=== PATIENT | male | born 1995 | race Two or more races ===

== ENCOUNTER 2021-07-26 01:14 | Emergency (ER) | payer MEDICAID, SELFPAY ==
[2021-07-26 01:35] VITALS: BP 201/135; BP 201/136; PULSE 103; PULSE 108; RESP 16; RESP 18; TEMP 36.9; O2SAT 97; O2SAT 99; BMI 38.3
--- NOTE | 2021-07-26 03:54 | PC.NURSE ---
Pt arrived to bed 18 from waiting room for evaluation of nosebleed x 1 hour prior to arrival. He states the nosebleed began while he was sitting down playing video games. On arrival to bed 18 his BP is noted to be greater than 200 systolically and greater than 100 diastolically. Stack MD aware. Pt has no complaints other than the nosebleed - no chest pain, no SOB. Speech is clear and appropriate, he has remained calm and cooperative, skin pink/warm/dry. Family at the bedside. Stack MD to bedside and applied a nasal trumpet in the left nare. pt tolerated procedure well. pt is sitting upright in bed, resting, awaiting DC instructions.
[2021-07-26 04:13] VITALS: BP 177/114; PULSE 94; RESP 20; O2SAT 97
--- NOTE | 2021-07-26 04:16 | ECG_ITS ---
Test Reason : WEAKNESS Blood Pressure : / mmHG Vent. Rate : 094 BPM Atrial Rate : 094 BPM P-R Int : 142 ms QRS Dur : 092 ms QT Int : 380 ms P-R-T Axes : 009 -49 029 degrees QTc Int : 475 ms Normal sinus rhythm Left anterior fascicular block Lateral infarct , age undetermined Abnormal ECG No previous ECGs available Referred By: Antionette Stack Electronically Signed By:VIV RANDOLPH
--- NOTE | 2021-07-26 04:18 | ED_ITS ---
History of Present Illness General Chief Complaint: Epistaxis Stated Complaint: Nose bleed Time Seen by Provider: 07/26/21 04:16 History of Present Illness HPI Narrative: Patient is a 25-year-old male while playing video game had a sudden onset of nosebleed on the left side. The bleeding never stop. Patient presents to the emergency department. Was noted also to have an extremely elevated blood pressure. Patient denies any history of highly elevated blood pressure. Not on any medication. Has no medication. Did not use any recreational drugs. Somewhat anxious secondary to the bleeding. Patient from home. Denies any trauma. Did not pick his nose. No foreign object. Related Data Previous Rx's Medication Instructions Recorded cephalexin 500 mg capsule 500 mg PO TID 7 days #21 caps 07/26/21 Allergies Allergy/AdvReac Type Severity Reaction Status Date / Time No Known Allergies Allergy Verified 07/26/21 01:26 Review of Systems Review of Systems: Positive nosebleed PMFSH Past Medical History Attestation statement: The following information was validated with the patient. Social History Social History Advance Directives: No Advance Directives Information Provided: No Physical Exam Vital Signs: Vital Signs: Last Vital Signs Temp 98.4 F 07/26/21 01:35 Pulse 94 07/26/21 04:13 Resp 20 07/26/21 04:13 BP 177/114 H 07/26/21 04:13 Pulse Ox 97 07/26/21 04:13 O2 Del Method 07/26/21 04:13 BMI result Body Mass Index 38.3 Appearance: Alert. Oriented X3. No acute distress. Eyes: Pupils equal, round and reactive to light. ENT: Pharynx normal positive dry blood noted. There is blood coming out from the left nostril. There is lots of clots noted. Neck: Normal inspection. Neck supple. No lymph nodes noted. No crepitus CVS: Normal heart rate and rhythm. Pulses normal. Normal S1 and S2 Respiratory: No respiratory distress. Breath sounds normal. No Wheezing. No rales Abdomen: Soft and nontender. No rigidity. No distention. good BS x4 Skin: Skin warm and dry. Normal skin color. Normal skin turgor. Extremities: No lower extremity edema. Neurovascular intact to all extremities. No Lacerations. No Rash Neuro: Oriented X 3. No motor deficit. No sensory deficit. Moving all extermities. No slurred speech MDM - Epistaxis MDM Narrative Medical decision making narrative: The blood clots from bilateral nostril was removed. Afrin was used for vaso constriction. Examination of the left nostril did not show a definitive site of bleeding. A 7.5 cm nasal packing was placed in the left nostril. Puffed up to 7 cc. It was 1st soaked in saline. Then bacitracin ointment was us for lubrication. No complication. Patient was then monitored in the emergency department for the next hour to hour and a half there is no acute bleeding. However patient's blood pressure remained elevated at 1 70/110. We will get baseline labs an EKG and monitor. No distress. Will start patient on antibiotics. Considering patient is still under stress from the nose bleed will not place patient on hypertensive medication. Will have patient follow-up on an outpatient basis for repeat blood pressure check. He is currently in stable condition. Differential Diagnosis Differential diagnosis: Likely anterior epistaxis Medical Records Attestation: I reviewed the patient's medical records. Lab Data Attestation: I reviewed the patient's lab results. Result diagrams: 07/26/21 04:30 07/26/21 04:30 Labs: Lab Results 07/26/21 07/26/21 Range/Units 04:30 04:30 WBC 9.6 (4.8-10.8) X10*3/uL RBC 4.95 (4.60-5.80) X10*6/uL Hgb 14.4 (14.0-18.0) g/dl Hct 41.0 L (42.0-52.0) % MCV 82.8 (80.0-98.0) fL MCH 29.1 (27.0-33.0) pg MCHC 35.1 (31.0-36.0) g/dl RDW 13.5 (11.0-16.0) % Plt Count 297 (160-400) X10*3/uL MPV 10.5 (9.4-12.4) fL Immature Gran % (Auto) 0.3 (0.0-0.4) % Neut % (Auto) 65.8 (45-73) % Lymph % (Auto) 24.5 (20-40) % [place] % (Auto) 7.6 (2-11) % Eos % (Auto) 1.5 (0-4) % Baso % (Auto) 0.3 (0-2) % Lymph # (Auto) 2.4 (1.2-4.9) X10*3/uL [place] # (Auto) 0.7 (0.1-1.2) X10*3/uL Eos # (Auto) 0.1 (0.0-0.4) X10*3/uL Baso # (Auto) 0.0 (0.0-0.2) X10*3/uL Abs Immat Gran (auto) 0.03 (0.00-0.03) X10*3/uL Absolute Neuts (auto) 6.3 (2.0-8.3) x10*3/uL Absolute Nucleated RBC 0.000 (0.0-0.012) X10*3/uL Nucleated RBC % (auto) 0.0 (0.0-0.2) /100WBC Sodium 138 (135-145) mmol/L Potassium 4.0 (3.3-5.1) mmol/L Chloride 107 (96-108) mmol/L Carbon Dioxide 23 (22-29) mmol/L Anion Gap 12 (12-20) BUN 15 (9-16) mg/dL Creatinine 0.98 (0.5-1.4) mg/dL Estim Creat Clear Calc 153.6 Estimated GFR > 60 Random Glucose 112 (60-115) mg/dL Calcium 9.4 (8.4-10.2) mg/dL Discharge Plan Discharge Clinical Impression: Epistaxis, Hypertension Patient Disposition: Home, Self-Care Instructions: Nosebleed (ED), Hypertension (ED) Additional Instructions: Packing removal in approximately 3 days. Blood pressure recheck in 2 days. Prescriptions: New cephalexin 500 mg capsule 500 mg PO TID 7 Days Qty: 21 0RF Referrals: Didier Lakhani [Physician] - Physician,Unknown J [Primary Care Provider] - (Please follow-up with your primary physician in 2 days for blood pressure recheck. Please also follow-up with ENT in 2 days for nasal packing removal.)
[2021-07-26 04:34] LABS: MANUAL DIFF FLAG NO
[2021-07-26 04:39] LABS: Basophils Percent Auto 0.3 % (0-2); Eosinophils Absolute Auto 0.1 X10*3/uL (0.0-0.4); Eosinophils Percent Auto 1.5 % (0-4); Hemoglobin 14.4 g/dl (14.0-18.0); Imm Gran Abs Auto 0.03 X10*3/uL (0.00-0.03); Imm Gran Pct Auto 0.3 % (0.0-0.4); Lymphocytes Absolute Auto 2.4 X10*3/uL (1.2-4.9); Lymphocytes Percent Auto 24.5 % (20-40); Mean Corpuscular HGB Conc 35.1 g/dl (31.0-36.0); Mean Corpuscular Hemoglobin 29.1 pg (27.0-33.0); Mean Corpuscular Volume 82.8 fL (80.0-98.0); Mean Platelet Volume 10.5 fL (9.4-12.4); Monocytes Absolute Auto 0.7 X10*3/uL (0.1-1.2); Monocytes Percent Auto 7.6 % (2-11); Neutrophils Absolute Auto 6.3 x10*3/uL (2.0-8.3); Neutrophils Percent Auto 65.8 % (45-73); Platelet Count 297 X10*3/uL (160-400); Red Blood Count 4.95 X10*6/uL (4.60-5.80); Red Cell Distribution Width 13.5 % (11.0-16.0); White Blood Count 9.6 X10*3/uL (4.8-10.8)
[2021-07-26 04:57] LABS: Anion Gap 12 (12-20); Blood Urea Nitrogen 15 mg/dL (9-16); Calcium 9.4 mg/dL (8.4-10.2); Carbon Dioxide 23 mmol/L (22-29); Chloride 107 mmol/L (96-108); Creatinine Clr Calc Pharmacy 153.6; Estimated Glomerular Filt Rate > 60; Glucose Random 112 mg/dL (60-115); Sodium 138 mmol/L (135-145)
== END 2021-07-26 05:50 | disposition home or self-care (01) ==
PROVIDERS: Emergency Provider Emergency Medicine Emergency Medical Services
DX: R04.0 Epistaxis (principal); I10 Essential (primary) hypertension
CPT/HCPCS: 30901; 36415; 80048; 85025; 93005; 99283; 99284

== ENCOUNTER 2021-07-28 08:56 | Emergency (ER) | payer SELFPAY ==
[2021-07-28] VITALS (8 sets, daily range): BP systolic 160–196; BP diastolic 97–127; PULSE 77–92; RESP 17–18; TEMP 36.6–36.8; O2SAT 97–100; BMI 38.3
--- NOTE | ~2021-07-28 | XR_ITS ---
EXAMINATION: XR CHEST CLINICAL INFORMATION: Severe hypertension. COMPARISON: None TECHNIQUE: Portable upright AP x2 views of the chest are obtained. FINDINGS: The lungs are clear. The vascularity is normal. The heart is normal in size. There is no airspace consolidation or groundglass opacity or effusion. The costophrenic sulci are clear. The hilar and mediastinal contours are normal. No visible acute bony abnormality. XR/XR chest 1V IMPRESSION: Unremarkable examination.
--- NOTE | 2021-07-28 10:06 | PC.NURSE ---
patient A/o x4 skin warm dry intact . c/o headache pain level 2 . hypertensive 172/127 . provider at bedside , nasal packing removed from left nare. no evidence of bleeding .
--- NOTE | 2021-07-28 10:15 | ED.GENADULT ---
HPI - General Adult General Chief complaint: General Medical Stated complaint: nasal pack removal Time Seen by Provider: 07/28/21 09:37 Source: patient Mode of arrival: ambulatory Limitations: no limitations History of Present Illness HPI narrative: 25-year-old male came in for left nostril nasal package removal, the patient had spontaneous left nostril bleed came to the emergency department were ballooned package was inserted to tamponade the bleeding from the left nostril is here today for back and removal, patient is not known to have high blood pressure found to have high blood pressure while in the emergency department but denies any headache or blurred vision or chest pain or abdominal pain. Related Data Previous Rx's Medication Instructions Recorded cephalexin 500 mg capsule 500 mg PO TID 7 days #21 caps 07/26/21 amlodipine 5 mg tablet 5 mg PO DAILY #30 tabs 07/28/21 Allergies Allergy/AdvReac Type Severity Reaction Status Date / Time No Known Allergies Allergy Verified 07/26/21 01:26 Review of Systems Review of Systems: All other systems are reviewed and are negative Constitutional: Reports as per HPI and Reports no additional constitutional complaints Eyes: Reports as per HPI and Reports no additional eye complaints Reports system reviewed and no additional complaints, except as documented Cardiovascular: Reports as per HPI and Reports no additional cardiovascular complaints Respiratory: Reports as per HPI and Reports no additional respiratory complaints Gastrointestinal: Reports as per HPI and Reports no additional gastrointestinal complaints Genitourinary: Reports no additional female genitourinary complaints Musculoskeletal: Reports no additional musculoskeletal complaints Skin/Breast: Reports system reviewed and no additional complaints, except as docu Psychiatric: Reports no additional psychiatric complaints Endocrine: Reports no additional endocrine complaints Hematologic/Lymphatic: Reports no additional hematologic/lymphatic complaints Allergic/Immunologic: Reports no additional allergic/immunologic complaints Reports system reviewed and no additional complaints, except as documented and Reports Abnormal speech present [facility] Social History Social History Smoked in Last 30 Days: No Advance Directives: No Advance Directives Information Provided: No Physical Exam ED Vital Signs: Vital Signs - 24 hr 07/28/21 08:59 07/28/21 10:03 07/28/21 10:28 Temperature 98 F 98.2 F Pulse Rate 90 81 79 Respiratory Rate 17 18 18 Blood Pressure 196/124 H 172/127 H 174/116 H Pulse Oximetry 98 98 98 Oxygen Delivery Method Room Air Room Air Room Air 07/28/21 10:59 07/28/21 12:07 07/28/21 12:51 Temperature 98.2 F Pulse Rate 90 86 77 Respiratory Rate 18 18 18 Blood Pressure 177/114 H 165/104 H 174/102 H Pulse Oximetry 98 99 97 Oxygen Delivery Method Room Air Room Air Room Air 07/28/21 13:16 07/28/21 14:23 Temperature Pulse Rate 92 91 Respiratory Rate 18 18 Blood Pressure 168/116 H 160/97 H Pulse Oximetry 98 100 Oxygen Delivery Method Room Air Room Air BMI result Body Mass Index 38.3 Vital signs have been reviewed as appeared to be correct. Blood pressure elevated. Heart rate normal. Respiration rate normal. Temperature normal. Oxygen saturation normal. Appearance: Alert. Oriented X3. No acute distress. Head: Normal external exam. Normocephalic. Atraumatic. No [place] signs noted. No raccoon eyes noted Eyes: PERRLA. EOMI. Conjunctiva and sclera normal. Eyelids normal. ENT: TM's Normal. Pharynx normal. Uvula midline. Moist mucous membranes. No trismus noted. No drooling noted. No muffled voice noted. Neck: Normal inspection. Neck supple. FROM. No adenopathy. Thyroid Normal. No meningeal signs. No neck mass noted. CVS: Normal heart rate and rhythm. Heart sound normal. No murmurs noted. Pulses normal throughout. Respiratory: No respiratory distress. Painless inspiration. Breath sounds normal. No wheezes/rales/rhonchi noted. Chest nontender. No accessory muscle usage noted or decreased air movement noted. Abdomen: Soft and nontender. Bowel sounds normal in all 4 quadrants. No distention noted. No organomegaly noted. No visible injury noted. Back: No CVA tenderness. Full range of motion noted. Skin: Skin warm and dry. Normal skin color. Normal skin turgor. No rashes/lesions/lacerations noted. Extremities: No lower extremity edema. Extremities exhibit normal range of motion. Extremities nontender. Neuro: Oriented X 3. Cranial nerve exam: II-XII are grossly intact No motor deficit. No sensory deficit. Reflexes normal. Course Course Course Narrative: 25-year-old male came in for left nostril removal, found to be hypertensive, U tox is negative, patient has no chest pain, no headache, blood pressure is under better control with amlodipine. Troponin is trending down and patient has no chest pain, the case discussed with Dr. Jolly who agreed on the plan to discharge the patient on amlodipine and follow up as an outpatient in his office. Medical Decision Making Lab Data Lab results reviewed: Yes I reviewed the patient's lab results. Result diagrams: 07/28/21 11:23 07/28/21 11:23 Labs: Lab Results 07/28/21 07/28/21 07/28/21 Range/Units 11:23 11:23 11:23 WBC 10.5 (4.8-10.8) X10*3/uL RBC 5.13 (4.60-5.80) X10*6/uL Hgb 15.0 (14.0-18.0) g/dl Hct 42.2 (42.0-52.0) % MCV 82.3 (80.0-98.0) fL MCH 29.2 (27.0-33.0) pg MCHC 35.5 (31.0-36.0) g/dl RDW 13.6 (11.0-16.0) % Plt Count 309 (160-400) X10*3/uL MPV 10.0 (9.4-12.4) fL Immature Gran % (Auto) 0.4 (0.0-0.4) % Neut % (Auto) 73.1 H (45-73) % Lymph % (Auto) 19.3 L (20-40) % [place] % (Auto) 6.7 (2-11) % Eos % (Auto) 0.3 (0-4) % Baso % (Auto) 0.2 (0-2) % Lymph # (Auto) 2.0 (1.2-4.9) X10*3/uL [place] # (Auto) 0.7 (0.1-1.2) X10*3/uL Eos # (Auto) 0.0 (0.0-0.4) X10*3/uL Baso # (Auto) 0.0 (0.0-0.2) X10*3/uL Abs Immat Gran (auto) 0.04 H (0.00-0.03) X10*3/uL Absolute Neuts (auto) 7.7 (2.0-8.3) x10*3/uL Absolute Nucleated RBC 0.000 (0.0-0.012) X10*3/uL Nucleated RBC % (auto) 0.0 (0.0-0.2) /100WBC Sodium 137 (135-145) mmol/L Potassium 4.1 (3.3-5.1) mmol/L Chloride 103 (96-108) mmol/L Carbon Dioxide 26 (22-29) mmol/L Anion Gap 12 (12-20) BUN 13 (9-16) mg/dL Creatinine 1.03 (0.5-1.4) mg/dL Estim Creat Clear Calc 146.1 Estimated GFR > 60 Random Glucose 103 (60-115) mg/dL Calcium 9.9 (8.4-10.2) mg/dL Total Bilirubin 1.7 H (0.0-1.0) mg/dL Direct Bilirubin 0.6 H (0.0-0.5) mg/dL AST 22 (5-37) U/L ALT 36 (0-40) U/L Alkaline Phosphatase 102 (39-117) U/L Troponin I High Sens 96.7 H (<3.5-35.0) ng/L B-Natriuretic Peptide 10 (<100) pg/mL Total Protein 8.0 (6.5-8.0) g/dL Albumin 4.9 (3.5-5.0) g/dL Lipase 28 (8-78) U/L Urine Color Urine Appearance Urine pH (5.0-8.0) Ur Specific [place] (1.005-1.025) Urine Protein (NEG-TRACE) MG/DL Urine Glucose (UA) (NEG) MG/DL Urine Ketones (NEG) MG/DL Urine Blood (NEG) Urine Nitrite (NEG) Ur Leukocyte Esterase (NEG) Urine Opiates Screen (Not Detect) Urine Fentanyl Screen (Not Detect) Ur Barbiturates Screen (Not Detect) Ur Phencyclidine Scrn (Not Detect) Ur Amphetamines Screen (Not Detect) U Benzodiazepines Scrn (Not Detect) Urine Cocaine Screen (Not Detect) U Marijuana (THC) Screen (Not Detect) 07/28/21 07/28/21 07/28/21 Range/Units 14:06 15:02 15:02 WBC (4.8-10.8) X10*3/uL RBC (4.60-5.80) X10*6/uL Hgb (14.0-18.0) g/dl Hct (42.0-52.0) % MCV (80.0-98.0) fL MCH (27.0-33.0) pg MCHC (31.0-36.0) g/dl RDW (11.0-16.0) % Plt Count (160-400) X10*3/uL MPV (9.4-12.4) fL Immature Gran % (Auto) (0.0-0.4) % Neut % (Auto) (45-73) % Lymph % (Auto) (20-40) % [place] % (Auto) (2-11) % Eos % (Auto) (0-4) % Baso % (Auto) (0-2) % Lymph # (Auto) (1.2-4.9) X10*3/uL [place] # (Auto) (0.1-1.2) X10*3/uL Eos # (Auto) (0.0-0.4) X10*3/uL Baso # (Auto) (0.0-0.2) X10*3/uL Abs Immat Gran (auto) (0.00-0.03) X10*3/uL Absolute Neuts (auto) (2.0-8.3) x10*3/uL Absolute Nucleated RBC (0.0-0.012) X10*3/uL Nucleated RBC % (auto) (0.0-0.2) /100WBC Sodium (135-145) mmol/L Potassium (3.3-5.1) mmol/L Chloride (96-108) mmol/L Carbon Dioxide (22-29) mmol/L Anion Gap (12-20) BUN (9-16) mg/dL Creatinine (0.5-1.4) mg/dL Estim Creat Clear Calc Estimated GFR Random Glucose (60-115) mg/dL Calcium (8.4-10.2) mg/dL Total Bilirubin (0.0-1.0) mg/dL Direct Bilirubin (0.0-0.5) mg/dL AST (5-37) U/L ALT (0-40) U/L Alkaline Phosphatase (39-117) U/L Troponin I High Sens 87.9 H (<3.5-35.0) ng/L B-Natriuretic Peptide (<100) pg/mL Total Protein (6.5-8.0) g/dL Albumin (3.5-5.0) g/dL Lipase (8-78) U/L Urine Color YELLOW Urine Appearance CLEAR Urine pH 6.0 (5.0-8.0) Ur Specific [place] 1.025 (1.005-1.025) Urine Protein 1+ H (NEG-TRACE) MG/DL Urine Glucose (UA) NEG (NEG) MG/DL Urine Ketones NEG (NEG) MG/DL Urine Blood NEG (NEG) Urine Nitrite NEG (NEG) Ur Leukocyte Esterase NEG (NEG) Urine Opiates Screen Not Detected (Not Detect) Urine Fentanyl Screen Not Detected (Not Detect) Ur Barbiturates Screen Not Detected (Not Detect) Ur Phencyclidine Scrn Not Detected (Not Detect) Ur Amphetamines Screen Not Detected (Not Detect) U Benzodiazepines Scrn Not Detected (Not Detect) Urine Cocaine Screen Not Detected (Not Detect) U Marijuana (THC) Screen Not Detected (Not Detect) Imaging Data Chest x-ray: Attestation: I personally reviewed and interpreted this imaging study as follows: Radiologist's impression: Unremarkable examination. ECG Data Attestation: I personally reviewed and interpreted this ECG as follows: Interpretation: Normal sinus rhythm at 85 beats per minute, normal intervals, LVH, no ST-T changes. No old EKG to compare. Discharge Plan Discharge Clinical Impression: Encounter for removal of nasal packing, Hypertension Patient Disposition: Home, Self-Care Instructions: Hypertension (ED) Prescriptions: New amlodipine 5 mg tablet 5 mg PO DAILY Qty: 30 0RF No Action cephalexin 500 mg capsule 500 mg PO TID 7 Days Qty: 21 0RF Referrals: Pierce Jolly MD [Physician] -
--- NOTE | 2021-07-28 11:02 | PC.NURSE ---
Pt remains hypertensive, Dr Pisano aware, no new orders at this time. Bleeding remains controlled at this time. Headache has resolved, offers no complaints, comfortable
--- NOTE | 2021-07-28 11:10 | ECG_ITS ---
Test Reason : HTN Blood Pressure : / mmHG Vent. Rate : 085 BPM Atrial Rate : 085 BPM P-R Int : 142 ms QRS Dur : 090 ms QT Int : 376 ms P-R-T Axes : 005 -56 022 degrees QTc Int : 447 ms Normal sinus rhythm with sinus arrhythmia Left anterior fascicular block Possible Lateral infarct (cited on or before 26-JUL-2021) Abnormal ECG When compared with ECG of 26-JUL-2021 04:30, No significant change was found Referred By: Darcy Pisano Electronically Signed By:Pierce Jolly
[2021-07-28] MEDS: amLODIPine Besylate 10 MG TABLET PO (11:24)
[2021-07-28 11:29] LABS: MANUAL DIFF FLAG NO
[2021-07-28 11:32] LABS: Basophils Percent Auto 0.2 % (0-2); Eosinophils Percent Auto 0.3 % (0-4); Hematocrit 42.2 % (42.0-52.0); Imm Gran Abs Auto 0.04 X10*3/uL (0.00-0.03); Imm Gran Pct Auto 0.4 % (0.0-0.4); Lymphocytes Percent Auto 19.3 % (20-40); Mean Corpuscular HGB Conc 35.5 g/dl (31.0-36.0); Mean Corpuscular Hemoglobin 29.2 pg (27.0-33.0); Mean Corpuscular Volume 82.3 fL (80.0-98.0); Monocytes Absolute Auto 0.7 X10*3/uL (0.1-1.2); Monocytes Percent Auto 6.7 % (2-11); Neutrophils Absolute Auto 7.7 x10*3/uL (2.0-8.3); Neutrophils Percent Auto 73.1 % (45-73); Platelet Count 309 X10*3/uL (160-400); Red Blood Count 5.13 X10*6/uL (4.60-5.80); Red Cell Distribution Width 13.6 % (11.0-16.0); White Blood Count 10.5 X10*3/uL (4.8-10.8)
[2021-07-28 11:53] LABS: Alanine Aminotransferase 36 U/L (0-40); Albumin Level 4.9 g/dL (3.5-5.0); Alkaline Phosphatase 102 U/L (39-117); Anion Gap 12 (12-20); Aspartate Amino Transferase 22 U/L (5-37); Bilirubin Direct 0.6 mg/dL (0.0-0.5); Bilirubin Total 1.7 mg/dL (0.0-1.0); Blood Urea Nitrogen 13 mg/dL (9-16); Calcium 9.9 mg/dL (8.4-10.2); Carbon Dioxide 26 mmol/L (22-29); Chloride 103 mmol/L (96-108); Creatinine Clr Calc Pharmacy 146.1; Estimated Glomerular Filt Rate > 60; Glucose Random 103 mg/dL (60-115); Lipase 28 U/L (8-78); Potassium 4.1 mmol/L (3.3-5.1); Sodium 137 mmol/L (135-145)
[2021-07-28 11:58] LABS: B Type Natriuretic Peptide 10 pg/mL (<100); Troponin-I High Sensitivity 96.7 ng/L (<3.5-35.0)
[2021-07-28 14:30] LABS: Troponin-I High Sensitivity 87.9 ng/L (<3.5-35.0)
[2021-07-28 15:20] LABS: Appearance Urine CLEAR; Color Urine YELLOW; Glucose Urine UA NEG (NEG); Leukocyte Esterase Urine NEG (NEG); Nitrite Urine NEG (NEG); Specific Gravity - Urine 1.025 (1.005-1.025); UACC Culture Trigger NO; Urine Blood NEG (NEG); Urine Ketones NEG (NEG); Urine Protein 1+ MG/DL (NEG-TRACE)
[2021-07-28 15:26] LABS: Amphetamine Screen Urine Not Detected (Not Detect); Barbiturates, Urine Not Detected (Not Detect); Benzodiazepines Screen Urine Not Detected (Not Detect); Cannabinoid Screen Urine Not Detected (Not Detect); Cocaine Screen Urine Not Detected (Not Detect); Fentanyl, urine Not Detected (Not Detect); Opiate Screen Urine Not Detected (Not Detect); Phencyclidine Screen Urine Not Detected (Not Detect)
[2021-07-28 15:35] LABS: RBC Urine 0-2 /HPF (0); Squamous Epithelial Cell Urine TRACE /LPF; WBC Urine 0-2 /HPF (0-4)
--- NOTE | 2021-07-28 15:47 | PC.NURSE ---
patient to follow up with primary care for hypertension . Patient educated on prescribed medication and to monitor blood pressure . Patient to return to Ed if nose bleed worsen . no questions at this time.
== END 2021-07-28 15:49 | disposition home or self-care (01) ==
PROVIDERS: Emergency Provider Emergency Medicine
DX: Z48.00 Encounter for change or removal of nonsurgical wound dressing (principal); I10 Essential (primary) hypertension
CPT/HCPCS: 36415; 71045; 80048; 80076; 80307; 81001; 83690; 83880; 84484; 85025; 93005; 99283; 99284